=== PATIENT | female | born 1995 | race Hispanic/Latino ===

== ENCOUNTER 2017-08-18 15:37 | Outpatient (CLI) | payer MEDICAID ==
[2017-08-18 16:18] VITALS: BP 98/55
[2017-08-18] MEDS ORDERED: LACTATED RINGERS 500 ML IV ONE (16:20)
[2017-08-18] MEDS ORDERED: ZOFRAN IV PRN (16:21)
[2017-08-18 16:43] LABS: Bilirubin,Urine NEG (Negative); Blood,Urine NEG (Negative); Color,Urine Yellow (Yellow); Mucus,Urine 1+ /HPF; Protein,Urine <15 mg/dL mg/dL (Negative); Urobilinogen,Urine < 2.0 mg/dL (<2.0)
[2017-08-18] MEDS ORDERED: LACTATED RINGERS 1,000 ML IV SCH (17:00)
[2017-08-18 17:23] LABS: Hematocrit 36.9 % (30.3-42.9); Hemoglobin 12.3 gm/dl (10.1-14.3); Mean Corpuscular HGB Conc 33 % (30-34); Mean Corpuscular Hemoglobin 32 pg (28-32); Mean Corpuscular Volume 95 fl (79-97); Platelet Count 216 K/mm3 (140-440); Red Cell Distribution Width 13.3 % (13.2-15.2)
[2017-08-18 17:50] LABS: Alanine Aminotransferase 6 units/L (7-56); Albumin 3.2 g/dL (3.9-5); BUN/Creatinine Ratio 35; Blood Urea Nitrogen 7 mg/dL (7-17); Calcium 8.7 mg/dL (8.4-10.2); Hemolysis Index 14
== END 2017-08-18 19:01 | disposition home or self-care (01) ==
LOC: TRG 15:37
PROVIDERS: ATTEND Obstetrics & Gynecology
DX: O47.02 False labor before 37 completed weeks of gestation, second trimester (principal); Z3A.26 26 weeks gestation of pregnancy
CPT/HCPCS: 36415; 59025; 80053; 81001; 85027; 96360; J2405; J7120

== ENCOUNTER 2017-08-31 14:05 | Outpatient (CLI) | payer MEDICAID ==
[2017-08-31] MEDS ORDERED: LACTATED RINGERS 500 ML IV ONE (14:16)
== END 2017-08-31 14:30 | disposition home or self-care (01) ==
LOC: TRG 14:05
PROVIDERS: ATTEND Obstetrics & Gynecology
DX: O36.0130 Maternal care for anti-D [Rh] antibodies, third trimester, not applicable or unspecified (principal); O99.333 Smoking (tobacco) complicating pregnancy, third trimester; F17.210 Nicotine dependence, cigarettes, uncomplicated; Z3A.28 28 weeks gestation of pregnancy
CPT/HCPCS: 86850; 86900; 86901; 96372; J2790

== ENCOUNTER 2017-10-01 14:40 | Outpatient (CLI) | payer MEDICAID ==
[2017-10-01 15:26] VITALS: BP 108/57
== END 2017-10-01 15:40 | disposition home or self-care (01) ==
LOC: TRG 14:40
PROVIDERS: ATTEND Obstetrics & Gynecology
DX: O99.333 Smoking (tobacco) complicating pregnancy, third trimester (principal); O47.03 False labor before 37 completed weeks of gestation, third trimester; F17.210 Nicotine dependence, cigarettes, uncomplicated
CPT/HCPCS: 59025

== ENCOUNTER 2017-11-18 12:30 | Outpatient (CLI) | payer MEDICAID ==
[2017-11-18 12:46] VITALS: BP 117/70
--- NOTE | 2017-11-18 14:22 | Ultrasound Report ---
ULTRASOUND BIOPHYSICAL PROFILE: History: well being Technique: Transabdominal ultrasound with Doppler interrogation. 2 - breathing movements 2 - movements 2 - posture and tone 2 - Qualitative amniotic fluid volume 8 - TOTAL SCORE OF POSSIBLE 8 Heart Rate (bpm) 152
--- NOTE | 2017-11-18 14:25 | Ultrasound Report ---
OB ULTRASOUND History well being. Technique: Transabdominal ultrasound with Doppler interrogation. Gestation: Single Position: Cephalic Amniotic Fluid: Normal MATTHEW = 12.3 cm Heart Rate: 152 BPM Cervical length: 3.2 cm (Normal > 3 cm) BPD: 9.3 cm = 37 w 4 d HC: 33.8 cm = 34 w 5 d AC: 34.9 cm = 38 w 5 d FL: 7.0 cm = 35 w 6 d HC/AC Ratio: 0.97 Cephalic Index: 81.4 Estimated Weight: 3355 grams Clinical age = 39 w 3 d EDC: 11/22/17 US Gest. Age = 37 w 5 d EDC: 12/04/17 IMPRESSION: Viable, single intrauterine as described.
== END 2017-11-18 14:53 | disposition home or self-care (01) ==
LOC: TRG 12:30
PROVIDERS: ATTEND Obstetrics & Gynecology
DX: O47.1 False labor at or after 37 completed weeks of gestation (principal); Z3A.39 39 weeks gestation of pregnancy; F17.210 Nicotine dependence, cigarettes, uncomplicated
CPT/HCPCS: 59025; 76816; 76819

== ENCOUNTER 2017-11-21 08:26 | Inpatient (IN) | payer MEDICAID ==
[2017-11-21] MEDS ORDERED: STADOL IV PRN (10:48)
[2017-11-21] MEDS ORDERED: MINERAL OIL PO PRN ×2 (10:48→12:35)
[2017-11-21] MEDS ORDERED: SUBLIMAZE IV PRN ×2 (10:48→12:35)
[2017-11-21] MEDS ORDERED: XYLOCAINE 2% INFILTRATI ONE (10:48)
[2017-11-21] MEDS ORDERED: BRETHINE SUB-Q PRN ×2 (10:48→12:35)
[2017-11-21] MEDS ORDERED: BRETHINE IVP PRN ×2 (10:48→12:35)
[2017-11-21] MEDS ORDERED: PITOCin/NS 30 UNIT/500ML 30 UNITS/500 ML BAG IV SCH ×2 (11:00→13:00)
[2017-11-21] MEDS ORDERED: LACTATED RINGERS 1,000 ML IV SCH ×2 (11:00→13:00)
[2017-11-21] MEDS ORDERED: PITOCin/NS 20 UNIT/1000ML DRIP 20 UNITS/1,000 ML BAG IV SCH ×2 (11:00→13:00)
[2017-11-21 11:39] LABS: Hematocrit 34.2 % (30.3-42.9); Hemoglobin 11.7 gm/dl (10.1-14.3); Mean Corpuscular HGB Conc 34 % (30-34); Mean Corpuscular Hemoglobin 30 pg (28-32); Mean Corpuscular Volume 88 fl (79-97); Platelet Count 237 K/mm3 (140-440); Red Cell Distribution Width 14.5 % (13.2-15.2)
--- NOTE | 2017-11-21 12:41 | History and Physical Report ---
History of Present Illness Date of examination: 11/21/17 Date of admission: 11/21/17 12:03 Chief complaint: contractions History of present illness: 21y/o @ 39+6 weeks presents in active labor with regular uterine contractions. She denies leakage of fluid but is experiencing bloody show. Past History Past Medical History: no pertinent history Past Surgical History: no surgical history - Obstetrical History Expected Date of Delivery: 11/22/17 Actual Gestation: 39 Week(s) 6 Day(s) : 2 Para: 1 Hx # Term Pregnancies: 1 Number of Pregnancies: 0 Spontaneous Abortions: 0 Induced : 0 Number of Living Children: 1 Medications and Allergies Allergies Allergy/AdvReac Type Severity Reaction Status Date / Time No Known Allergies Allergy Verified 11/18/17 12:50 Home Medications Medication Instructions Recorded Confirmed Last Taken Type metroNIDAZOLE [Flagyl TAB] 1 tab PO BID 10/01/17 10/01/17 Unknown History Active Meds: Active Medications Butorphanol Tartrate (Stadol) 2 mg IV Q2H PRN PRN Reason: Pain , Severe (7-10) Ephedrine Sulfate (Ephedrine Sulfate) 10 mg IV Q2M PRN PRN Reason: Hypotension Fentanyl (Sublimaze) 100 mcg IV Q2H PRN PRN Reason: Labor Pain Lactated Ringer's (Lactated Ringers) 1,000 mls @ 125 mls/hr IV DIRECT ANNI Oxytocin/Sodium Chloride (Pitocin/Ns 20 Unit/1000ml Drip) 20 units in 1,000 mls @ 125 mls/hr IV DIRECT ANNI Oxytocin/Sodium Chloride (Pitocin/Ns 30 Unit/500ml) 30 units in 500 mls @ 1 mls /hr IV TITR ANNI; Protocol Mineral Oil (Mineral Oil) 30 ml PO QHS PRN PRN Reason: Constipation Terbutaline Sulfate (Brethine) 0.25 mg SUB-Q ONCE PRN PRN Reason: Hyperstimulation/Hypertonicity Terbutaline Sulfate (Brethine) 0.25 mg IVP ONCE PRN PRN Reason: Hyperstimulation/Hypertonicity Review of Systems All systems: negative Genitourinary: contractions - Vital Signs Vital signs: Vital Signs Pulse BP 109 H 119/67 11/21/17 08:51 11/21/17 08:51 Temp Pulse Resp BP Pulse Ox 98.1 F 109 H 16 119/67 11/21/17 10:53 11/21/17 08:51 11/21/17 10:53 11/21/17 08:51 - Physical Exam Cardiovascular: Regular rate Lungs: Positive: Clear to auscultation Abdomen: Positive: normal appearance Results Result Diagrams: 11/21/17 11:00 Abnormal lab results 11/21/17 Range/Units 11:00 WBC 16.0 H (4.5-11.0) K/mm3 All other labs normal. Assessment and Plan - Patient Problems (1) Active labor at term Current Visit: Yes Status: Acute Plan to address problem: admit to L&D for labor
[2017-11-21] MEDS ORDERED: NARCAN 2 MG/2 ML IV PRN (14:21)
--- NOTE | 2017-11-21 14:23 | Anesthesia Consultation ---
Anesthesia Consult and Med Hx Date of service: 11/21/17 - Airway Anesthetic Teeth Evaluation: Good ROM Head & Neck: Adequate Mental/Hyoid Distance: Adequate Mallampati Class: Class II Intubation Access Assessment: Probably Good - Pulmonary Exam CTA: Yes - Cardiac Exam Cardiac Exam: RRR (tachycardic) - Pre-Operative Health Status ASA Pre-Surgery Classification: ASA2 Proposed Anesthetic Plan: Epidural, Spinal - Pulmonary Hx Smoking: Yes (1/2 PPD) Hx Asthma: No SOB: No COPD: No - Cardiovascular System Hx Hypertension: No Hx Heart Attack/AMI: No - Central Nervous System Hx Neuromuscular Disorder: No Hx Seizures: No CVA: No - Endocrine Hx Renal Disease: No Hx Liver Disease: No Hx Insulin Dependent Diabetes: No Hx Thyroid Disease: No
[2017-11-21] MEDS ORDERED: fentaNYL-BUPIV 2 MCG/ML-0.125% 200 MCG/100 ML BAG EPIDURAL SCH (15:00)
[2017-11-21] MEDS ORDERED: DULCOLAX PR PRN (17:13)
[2017-11-21] MEDS ORDERED: PHENERGAN PR PRN (17:13)
[2017-11-21] MEDS ORDERED: LANSINOH TP PRN (17:13)
[2017-11-21] MEDS ORDERED: BENADRYL PO PRN (17:13)
[2017-11-21] MEDS ORDERED: TUCKS PAD TP PRN (17:13)
[2017-11-21] MEDS ORDERED: NORCO 5/325 PO PRN (17:13)
[2017-11-21] MEDS ORDERED: MILK OF MAGNESIA PO PRN (17:13)
[2017-11-21] MEDS ORDERED: ZOFRAN IV PRN (17:13)
[2017-11-21] MEDS ORDERED: TYLENOL PO PRN (17:13)
[2017-11-21] MEDS ORDERED: PHENERGAN PO PRN (17:13)
--- NOTE | 2017-11-21 17:13 | Procedure Note ---
OB Delivery Note - Delivery Date of Delivery: 11/21/17 Surgeon: SIVAN FLORES Estimated blood loss: 100cc - Vaginal Delivery presentation: vertex Delivery position: OA Delivery augmentation: rupture of membranes Delivery monitor: external FHT Route of delivery: Delivery placenta: spontaneous Delivery cord: 3 umbilical vessels Episiotomy: none Delivery laceration: none Anesthesia: epidural Delivery comments: Patient had a precipitous delivery attended by the nurse. The patient reports the delivered spontaneously. She delivered a liveborn female with apgars of 8/9. The shoulders delivered easily. The cord was clamped and cut and infant placed on the patient's abdomen. The placenta delivered spontaneously intact with 3VC. No lacerations noted. Weight 7lbs 11oz. EBL 100. - Infant A at 1 minute: 8 at 5 minutes: 9 Infant Gender: Female (weight 7lbs 11oz)
[2017-11-21] MEDS ORDERED: SODIUM CHLORIDE FLUSH SYRINGE 10 ML IV NR (18:00)
[2017-11-21] MEDS: MOTRIN PO SCH (19:48)
[2017-11-22] MEDS: MOTRIN PO SCH ×3 (05:33→18:40)
[2017-11-22 07:03] LABS: Hematocrit 25.8 % (30.3-42.9); Hemoglobin 8.7 gm/dl (10.1-14.3)
--- NOTE | 2017-11-22 10:13 | Progress Note ---
Assessment and Plan - Patient Problems (1) Active labor at term Current Visit: Yes Status: Acute Plan to address problem: discharge home tomorrow Subjective - Subjective Date of service: 11/22/17 Interval history: Patient is tolerating regular diet without complications. Reports some crampy pain and lower back discomfort. Patient reports: appetite normal, voiding normally Branch: doing well, nursing well Objective - Vital Signs Latest vital signs: Vital Signs Temp Pulse Resp BP BP Pulse Ox 11/22/17 07:30 97.5 F L 96 H 16 108/61 99 11/22/17 05:26 97.9 F 92 H 18 101/54 97 11/22/17 00:03 98.2 F 84 18 98/56 98 11/21/17 19:49 99.0 F 109 H 20 109/67 100 11/21/17 18:11 45 L 129/60 91 11/21/17 18:08 110 H 99 11/21/17 18:03 98 H 98 11/21/17 17:58 112 H 99 11/21/17 17:56 100 H 133/71 11/21/17 17:53 98 H 99 11/21/17 17:48 96 H 100 11/21/17 17:43 104 H 100 11/21/17 17:41 106 H 118/56 11/21/17 17:38 97 H 100 11/21/17 17:33 108 H 100 11/21/17 17:28 100 H 100 11/21/17 17:26 103 H 117/60 11/21/17 17:23 108 H 100 11/21/17 17:18 194 H 100 11/21/17 17:13 125 H 100 11/21/17 17:08 116 H 99 11/21/17 17:04 135/86 11/21/17 17:03 111 H 99 11/21/17 16:58 111 H 99 11/21/17 16:53 96 H 100 11/21/17 16:51 102 H 86 11/21/17 16:48 104 H 98 11/21/17 16:46 107 H 93 11/21/17 16:43 116 H 95 11/21/17 16:38 91 H 100 11/21/17 16:34 90 116/63 84 11/21/17 16:33 94 H 100 11/21/17 16:28 89 100 09/15/18 16:23 91 H 100 09/15/18 16:18 101 H 100 09/15/18 16:13 71 98 09/15/18 16:08 80 99 09/15/18 16:05 82 98/62 09/15/18 16:03 74 98 09/15/18 15:58 77 99 09/15/18 15:53 74 100 09/15/18 15:48 78 100 09/15/18 15:43 79 100 09/15/18 15:38 68 99 09/15/18 15:34 80 103/65 09/15/18 15:33 73 99 09/15/18 15:31 77 104/62 09/15/18 15:30 79 101/61 09/15/18 15:28 67 107/61 100 /15/18 15:26 77 106/61 09/15/18 15:24 80 105/57 09/15/18 15:23 86 99 09/15/18 15:21 75 107/60 09/15/18 15:20 63 108/63 09/15/18 15:18 76 115/64 100 09/15/18 15:16 80 114/59 09/15/18 15:14 87 107/56 /15/18 15:13 72 100 /15/18 15:12 80 109/59 /15/18 15:09 83 91/55 09/15/18 15:08 76 91/50 100 /15/18 15:05 67 90/60 09/15/18 15:04 77 86/58 09/15/18 15:03 73 100 /15/18 15:01 78 90/53 09/15/18 15:00 76 91/55 09/15/18 14:58 101 H 100 /15/18 14:57 88 96/55 09/15/18 14:55 81 91/55 09/15/18 14:53 75 90/54 99 /15/18 14:52 68 90/52 09/15/18 14:50 91 H 91/55 09/15/18 14:48 84 93/51 99 09/15/18 14:46 77 96/51 09/15/18 14:44 88 105/52 09/15/18 14:43 93 H 100 /15/18 14:42 73 96/55 09/15/18 14:40 74 109/57 11/21/17 14:38 71 124/63 98 11/21/17 14:36 74 115/60 11/21/17 14:34 90 119/76 11/21/17 14:33 97 H 99 11/21/17 14:32 99 H 113/70 11/21/17 14:30 80 116/68 11/21/17 14:28 104 H 113/68 99 11/21/17 14:26 76 112/64 11/21/17 14:24 92 H 120/70 11/21/17 14:23 88 100 11/21/17 14:22 93 H 117/72 11/21/17 14:20 102 H 115/62 11/21/17 14:18 98 H 100 11/21/17 14:17 96 H 117/71 11/21/17 14:16 89 114/66 11/21/17 14:14 102 H 112/78 11/21/17 14:13 95 H 98 11/21/17 14:12 111 H 116/74 11/21/17 14:10 84 112/71 11/21/17 14:08 92 H 100/63 96 11/21/17 14:06 100 H 115/67 11/21/17 14:04 100 H 118/64 11/21/17 14:03 97 H 99 11/21/17 13:58 105 H 99 11/21/17 13:36 16 11/21/17 10:53 98.1 F 16 Intake and Output 11/21/17 11/22/17 11/22/17 22:59 06:59 14:59 Intake Total 360 360 Output Total 900 1000 Balance -540 -640 Intake: Oral 240 Intake, Free Water 360 120 Output: Urine 900 1000 Indwelling Catheter 500 Void 400 1000 Other: Total, Intake Amount 240 Total, Output Amount 400 400 Estimated Blood Loss 100 - Exam Uterus: Present: normal, firm - Labs Labs: Abnormal lab results 11/21/17 11/22/17 Range/Units 11:00 06:35 WBC 16.0 H (4.5-11.0) K/mm3 Hgb 8.7 L D (10.1-14.3) gm/dl Hct 25.8 L D (30.3-42.9) %
--- NOTE | 2017-11-22 11:21 | Discharge Summary ---
Providers - Providers Date of Admission: 11/21/17 12:03 Date of discharge: 11/23/17 Attending physician: CARMELA MONTERO MD Primary care physician: STELLA LUNA Hospitalization Reason for admission: active labor Delivery: Discharge diagnosis: IUP at term delivered [place] baby: female Hospital course: Patient admitted in active labor. Had a . uncomplicated Condition at discharge: Good Disposition: DC-01 TO HOME OR SELFCARE - Discharge Diagnoses (1) Active labor at term Status: Acute Plan - Discharge Medications Prescriptions: HYDROcodone/APAP 5-325 [[place] 5/325] 1 each PO Q6HR PRN #30 tablet PRN Reason: Pain Ibuprofen [Motrin] 800 mg PO Q8HR PRN #60 tablet PRN Reason: Pain, Mild (1-3) - Provider Discharge Summary Activity: no sex for 6 weeks, no heavy lifting 4 weeks, no strenuous exercise Diet: routine Instructions: routine Additional instructions: [] Smoking cessation referral if applicable(refer to patient education folder for contact #) [] Refer to [facility]'s [facility] Booklet Call your doctor immediately for: * Fever > 100.5 * Heavy vaginal bleeding ( >1 pad per hour) * Severe persistent headache * Shortness of breath * Reddened, hot, painful area to leg or breast * schedule followup in 4 weeks - Follow up plan
[2017-11-23] MEDS: MOTRIN PO SCH ×4 (00:48→17:00)
[2017-11-23 16:50] VITALS: BP 113/69
== END 2017-11-23 18:45 | disposition home or self-care (01) | DRG 775 ==
LOC: TRG 08:26 → LD 12:03 → OB 19:30
PROVIDERS: ADMIT Obstetrics & Gynecology; ATTEND Obstetrics & Gynecology
PROC: 10E0XZZ Delivery of Products of Conception, External Approach (ICD-10-PCS; principal; 2017-11-21)
PROC: 3E0R3BZ Introduction of Anesthetic Agent into Spinal Canal, Percutaneous Approach (ICD-10-PCS; 2017-11-21)
PROC: 00HU33Z Insertion of Infusion Device into Spinal Canal, Percutaneous Approach (ICD-10-PCS; 2017-11-21)
PROC: 3E0334Z Introduction of Serum, Toxoid and Vaccine into Peripheral Vein, Percutaneous Approach (ICD-10-PCS; 2017-11-22)
DX: O62.3 Precipitate labor (principal); Z3A.39 39 weeks gestation of pregnancy; Z37.0 Single live birth; Z29.13 Encounter for prophylactic Rho(D) immune globulin
CPT/HCPCS: 36415; 85014; 85018; 85027; 85461; 86592; 86850; 86900; 86901; A6250; J0595; J2590; J2790; J7120